=== PATIENT | female | born 1970 | race Asian ===

== ENCOUNTER 2017-11-10 08:17 | Outpatient (CLI) | payer BC ==
--- NOTE | 2017-11-16 10:41 | MMO ---
SCREENING MAMMOGRAPHY: Date: 11-10-17 Comparison: 10-28-16, 10-23-15, 10-19-14 History: Screening mammography. FINDINGS: The patient's mammograms are interpreted with the assistance of computer aided detection. The breast parenchyma is heterogeneously dense, limiting mammographic sensitivity. Benign calcification noted on the right. No dominant mass, architectural distortion. No concerning microcalcifications are seen. IMPRESSION: BIRADS 2 - benign findings. Recommend annual screening mammography. POS: [facility]
== END 2017-11-10 08:18 | disposition home or self-care (01) ==
LOC: SCSMAMMO 08:17
PROVIDERS: ATTEND Family Medicine
DX: Z12.31 Encounter for screening mammogram for malignant neoplasm of breast (principal); Z00.00 Encounter for general adult medical examination without abnormal findings
CPT/HCPCS: 77067